=== PATIENT | male | born 1970 | race Caucasian/White ===

== ENCOUNTER 2019-04-01 09:30 | Emergency (ER) | payer BC ==
[~2019-04-01] VITALS: Ht 167.6 cm; Wt 73.9 kg
[2019-04-01] MEDS ORDERED: ACID REDUCER20 M1 PO (09:46)
[2019-04-01] MEDS ORDERED: DICLOFENAC SODI75 MG PO (11:29)
== END 2019-04-01 11:35 | disposition home or self-care (01) ==
LOC: ER 09:30
DX: S60.211A Contusion of right wrist, initial encounter (principal); W18.39XA Other fall on same level, initial encounter; Y93.89 Activity, other specified; Y92.89 Other specified places as the place of occurrence of the external cause; Y99.8 Other external cause status